=== PATIENT | male | born 1965 | race Caucasian/White ===

== ENCOUNTER 2024-03-22 15:24 | Emergency (ER) | payer OTHER, MEDICAID ==
[2024-03-22] MEDS ORDERED: Lidocaine 1% 5 ML VIAL INFILT ONE (15:25)
[2024-03-22] MEDS ORDERED: Bacitracin Oint 1 GM U/D Packet TOP ONE (16:16)
== END 2024-03-22 16:45 | disposition home or self-care (01) ==
LOC: FB.ED 15:24
DX: S61.211A Laceration without foreign body of left index finger without damage to nail, initial encounter (principal); S61.213A Laceration without foreign body of left middle finger without damage to nail, initial encounter; Z79.899 Other long term (current) drug therapy; Z87.891 Personal history of nicotine dependence; W31.2XXA Contact with powered woodworking and forming machines, initial encounter
CPT/HCPCS: 12002; 99282